=== PATIENT | male | born 1995 | race Caucasian/White ===

== ENCOUNTER 2019-09-29 17:12 | Emergency (ER) | payer OTHER, SELFPAY ==
[2019-09-29 17:25] VITALS: BP 146/79; PULSE 85; RESP 16; TEMP 36.4; O2SAT 97
--- NOTE | 2019-09-29 18:02 | NUR.NOTE ---
Nursing Note: Report and dog information faxed to [facility] Clerk. Health Officer Carson Jc notified and has a copy of the same information faxed to floor clerk. Angelia Martino. [facility] Clerk [phone]
[2019-09-29] MEDS: Amoxicillin 875/Clav. 125 TAB PO (18:38)
--- NOTE | 2019-09-29 18:39 | NUR.NOTE ---
Nursing Note: Wound cleaned and dressed prior to DC.
--- NOTE | 2019-09-30 00:02 | ED.GENADUL_ITS ---
Discharge Plan Disposition Patient Disposition: HOME Condition: Stable Discharge Details Chief Complaint: AnimalBite Clinical Impression: Dog bite Primary Care Provider: Lyle Choudhury ED Provider: Simran Holland Home Meds and New Rx's Prescriptions: New amoxicillin-pot clavulanate [Augmentin] 875-125 mg tablet 1 tab PO BID Qty: 20 RF: 0 No Action magnesium 200 mg tablet 200 mg PO DAILY PRNRF: 0 Discharge Instructions Instructions: Animal Bite (ED) Additional Instructions: Wash area with soap and water once or twice daily. Pat dry completely after washing or air dry. Apply topical antibiotic ointment to the wound and cover for at least 1 week. Suture removal from the left leg in 10 days. Please return to the emergency room for suture removal. For any sign of infection have immediate reevaluation in the emergency room. Antibiotic as prescribed every 12 hours. Recheck with primary care doctor this week. Return for any worsening, concerns or alarming symptoms sooner if needed Stand Alone Forms: Work Release Discharge Data Discharge Date/Time-TO BE ENTERED AT DEPARTURE: 09/29/19 19:00 HPI General Date/Time Provider Initiated Documentation: 09/29/19 17:27 . 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 This was unprovoked. Patient presents with wounds to bilateral thighs. Patient presents with paperwork from the occupational hygienist of the dog revealing up-to-date rabies vaccines. Patient reports his tetanus vaccine is up-to-date. Patient reports he is currently had a prescription for Augmentin for sinus infection which she was intermittently compliant with and has not completed. Patient has wounds noted to the right thigh with ecchymosis with no deep extension. Left thigh reveals again wounds and ecchymosis however there is 1 larger wound approximately 1.5 cm extending into the subcutaneous. Bleeding is controlled. Mild pain with range of motion of the legs but nothing to indicate deep injury. Left leg wound prepped extensively irrigated. A single 4-0 suture to close space. Patient provided with Augmentin prior to discharge and a 10-day pr escription. Wound management discussed. Suture removal discussed. Signs of infection discussed. The patient was stable and requested discharge. Prior to discharge, my usual and customary return precautions were reviewed with the patient - this included follow-up instructions and reasons to return to the Emergency Department if conditions worsens, does not improve as expected, or other new concerns arise. Related Data Home Medications Medication Instructions Recorded Confirmed magnesium 200 mg tablet 200 mg PO DAILY PRN 09/12/19 09/29/19 amoxicillin-pot clavulanate 1 tab PO BID #20 tab 09/29/19 [Augmentin] Previous Rx's Medication Instructions Recorded amoxicillin-pot clavulanate 1 tab PO BID #20 tab 09/29/19 [Augmentin] Allergies Allergy/AdvReac Type Severity Reaction Status Date / Time No Known Allergies Allergy Unverified 09/29/19 17:29 General Stated Complaint: AnimalBite ROMULO: 4 PFSH Family History (Updated 07/18/19 @ 15:12 by Momo Anderson) Mother No problems noted. Father Diabetes Brother No problems noted. Maternal Grandfather , age 82 Hyperlipidemia Lung cancer Paternal Grandfather Heart disease Maternal Grandmother Diabetes Essential hypertension Hyperlipidemia Paternal Grandmother No problems noted. Social History (Updated 07/18/19 @ 15:11 by Momo Anderson) Smoking/Tobacco Use Status: Current-Occasional Tobacco Type: e-cigarettes and smokeless tobacco Smokeless tobacco user: chewing tobacco Quit status: considering quitting Alcohol Intake: current Alcohol Intake frequency: 0-2 drinks per day Alcohol type: beer Drug use: Occasionally Substance use type: marijuana Caregiver/Support person: No Household members: family Housing: house Communication Needs: None Do you need help understanding health information?: Never current occupation: [employer] Pets and animals: Yes Pets and animals: cat(s) Sexually active: No Do you think of yourself as: straight/heterosexual Current gender identity: male What is your relationship status?: never How often do you talk on the phone with friends or family?: three or more times per week How often do you get together with friends or relatives?: three or more times per week How often do you attend congregational or presybeterian services?: decline to answer Do you belong to any clubs or organized social groups?: no Panel score (0-1 are the most socially isolated patients): 1 What type of physical activity do you participate in: walking and other Details: work Duration: 60-90 minutes/day Frequency: 5-6 times per week Gala/Voodoo: No preference Special gala needs: No Seatbelt use: always 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 Do you feel safe in your relationship?: Yes Course Vital Signs Vital signs: Vital Signs Temperature 36.4 C L 09/29/19 17:25 Pulse 85 09/29/19 17:25 Respiratory Rate 16 09/29/19 17:25 Blood Pressure 146/79 H 09/29/19 17:25 Pulse Oximetry 97 09/29/19 17:25 Temperature 36.4 C L 09/29/19 17:25 Temperature Source Skin 09/29/19 17:25 Pulse 85 09/29/19 17:25 Respiratory Rate 16 09/29/19 17:25 Respiratory Effort Non-Labored 09/29/19 17:25 Blood Pressure 146/79 H 09/29/19 17:25 Blood Pressure Position Sitting 09/29/19 17:25 Pulse Oximetry 97 09/29/19 17:25 Oxygen Delivery Method Room Air 09/29/19 17:25 Oxygen Flow Rate 0 09/29/19 17:25 Pain Level 4 09/29/19 17:48
== END 2019-09-29 19:00 | disposition home or self-care (01) ==
PROVIDERS: Emergency Provider Physician Assistant; PCP Family Medicine
DX: S71.152A Open bite, left thigh, initial encounter (principal); S70.311A Abrasion, right thigh, initial encounter; W54.0XXA Bitten by dog, initial encounter; Y99.0 Civilian activity done for income or pay
CPT/HCPCS: 12001; 99283; 99281

== ENCOUNTER 2020-10-15 10:56 | Emergency (ER) | payer OTHER, SELFPAY ==
--- NOTE | 2020-10-15 11:00 | DI.RAD_ITS ---
EXAM: XR SHOULDER LT COMPLETE 2+V CLINICAL HISTORY: pain lateral shoulder, heavy lifting. TECHNIQUE: 2D digital imaging was performed. COMPARISON: No exams were available for comparison FINDINGS: BONES: No acute fracture is present. No bony destructive lesion is seen. JOINTS: No dislocation present. SOFT TISSUE: Normal. IMPRESSION: Unremarkable radiographs of the left shoulder. DATA REPOSITORY: RADIATION DOSE DELIVERED:
[2020-10-15 11:01] VITALS: BP 132/97; PULSE 74; RESP 16; TEMP 37.2; O2SAT 99
--- NOTE | 2020-10-15 11:48 | W.ED.GENAD ---
Discharge Plan Disposition Patient Disposition: HOME Condition: Good Discharge Details Clinical Impression: Left shoulder strain Primary Care Provider: Lyle Choudhury ED Provider: Libby Morales Home Meds and New Rx's Prescriptions: New diclofenac sodium [Voltaren] 1 % gel 4 g topical QID Qty: 150 RF: 0 No Action magnesium 200 mg tablet 200 mg PO DAILY PRNRF: 0 mupirocin 2 % ointment 1 applic topical TID Qty: 15 RF: 0 Discharge Instructions Instructions: Shoulder Sprain (ED) Additional Instructions: follow-up with pcp next week gel to shoulder as needed for pain motrin 600 mg every 8 hours tylenol 650 mg every 4-6 as needed for pain continue to range shoulder so it does not become stiff return earlier with new or worsening complaints blood pressure rechecked by pcp Stand Alone Forms: Work Release Discharge Data Discharge Date/Time-TO BE ENTERED AT DEPARTURE: 10/15/20 12:35 Medical Decision Making Suspect strain to the left shoulder given mechanism X-ray does not show acute pathology per my interpretation, pending radiology review Ibuprofen and Tylenol for pain control PCP follow-up recommended Return precautions discussed the patient expressed understanding Differential Diagnosis Differential Diagnosis: Fracture, strain, contusion, abrasion HPI 25-year-old male with left shoulder pain which began just prior to arrival. He was listening TO TRUCK WHEN HE FELT A POP IN HIS LEFT SHOULDER. HE DENIES ANY ADDITIONAL INJURIES. HE IS LEFT-HAND DOMINANT. HE DENIES any additional injury.. HE IS UNABLE TO EXTEND OR ABDUCT LEFT ARM SECONDARY TO DISCOMFORT. HE DENIES ANY NECK PAIN. General Date/Time Provider Initiated Documentation: 10/15/20 11:02. Related Data Home Medications Medication Instructions Recorded Confirmed magnesium 200 mg tablet 200 mg PO DAILY PRN 09/12/19 10/31/19 mupirocin 2 % topical ointment 1 applic TOPICAL TID #15 g 10/01/20 10/01/20 diclofenac sodium [Voltaren] 4 g TOPICAL QID #150 g 10/15/20 Previous Rx's Medication Instructions Recorded mupirocin 2 % topical ointment 1 applic TOPICAL TID #15 g 10/01/20 diclofenac sodium [Voltaren] 4 g TOPICAL QID #150 g 10/15/20 Allergies Allergy/AdvReac Type Severity Reaction Status Date / Time No Known Allergies Allergy Unverified 10/31/19 09:43 General Stated Complaint: Orthopedic ROMULO: 4 Review of Systems Narrative: Review of systems negative x3 aside from where indicated in HPI PFSH Family History Mother No problems noted. Father Diabetes Brother No problems noted. Maternal Grandfather , age 82 Hyperlipidemia Lung cancer Paternal Grandfather Heart disease Maternal Grandmother Diabetes Essential hypertension Hyperlipidemia Paternal Grandmother No problems noted. Social History (Updated 07/18/19 @ 15:11 by Momo Anderson) Smoking/Tobacco Use Status: Current-Occasional Tobacco Type: e-cigarettes and smokeless tobacco Smokeless tobacco user: chewing tobacco Quit status: considering quitting Smoking risk assessment performed?: Yes Alcohol Intake: current Alcohol Intake frequency: 0-2 drinks per day Alcohol type: beer Drug use: Occasionally Substance use type: marijuana Caregiver/Support person: No Household members: family Housing: house Communication Needs: None Do you need help understanding health information?: Never current occupation: [employer] Pets and animals: Yes Pets and animals: cat(s) Sexually active: No Do you think of yourself as: straight/heterosexual Current gender identity: male What is your relationship status?: never How often do you talk on the phone with friends or family?: three or more times per week How often do you get together with friends or relatives?: three or more times per week How often do you attend worship or rastafari services?: decline to answer Do you belong to any clubs or organized social groups?: no Panel score (0-1 are the most socially isolated patients): 1 What type of physical activity do you participate in: walking and other Details: work Duration: 60-90 minutes/day Frequency: 5-6 times per week Gala/Scientologist: No preference Special gala needs: No Seatbelt use: always Drive intox or ride w/intox limb driver: No Do you feel safe at home: Yes Do you feel safe in your relationship?: Yes Exam Const General: comfortable Neck Other: No midline tenderness Extrem Other: Pain with palpation of her left shoulder, decreased supination and abduction, sensation intact distally, distal pulses intact Course Vital Signs Vital signs: Vital Signs Temperature 37.2 C 10/15/20 11:01 Pulse 74 10/15/20 11:01 Respiratory Rate 16 10/15/20 11:01 Blood Pressure 132/97 H 10/15/20 11:01 Pulse Oximetry 99 10/15/20 11:01 Temperature 37.2 C 10/15/20 11:01 Temperature Source Skin 10/15/20 11:01 Pulse 74 10/15/20 11:01 Respiratory Rate 16 10/15/20 11:01 Respiratory Effort 10/15/20 11:07 Blood Pressure 132/97 H 10/15/20 11:01 Blood Pressure Position Sitting 10/15/20 11:01 Pulse Oximetry 99 10/15/20 11:01 Oxygen Delivery Method Room Air 10/15/20 11:01 Oxygen Flow Rate 0 10/15/20 11:01 Pain Level 5 10/15/20 11:01
[2020-10-15] MEDS: Ibuprofen 600 MG TAB PO (12:19)
== END 2020-10-15 12:35 | disposition home or self-care (01) ==
PROVIDERS: Emergency Provider Physician Assistant; PCP Family Medicine
DX: S46.812A Strain of other muscles, fascia and tendons at shoulder and upper arm level, left arm, initial encounter (principal); X50.9XXA Other and unspecified overexertion or strenuous movements or postures, initial encounter
CPT/HCPCS: 99283; 73030

== ENCOUNTER 2020-11-12 04:31 | Outpatient (CLI) | payer OTHER, SELFPAY ==
[2020-11-12 08:31] LABS: Hemoglobin A1C 5.5 % (<5.7)
[2020-11-12 09:21] LABS: Calculated LDL 149 mg/dL (<100); Cholesterol 224 mg/dL (<200); HDL Cholesterol 54 mg/dL (40-60); Triglyceride 105 mg/dL (<150)
== END 2020-11-12 04:32 | disposition home or self-care (01) ==
PROVIDERS: PCP Family Medicine; Visit Provider Nurse Practitioner Family
DX: Z13.220 Encounter for screening for lipoid disorders (principal); Z13.1 Encounter for screening for diabetes mellitus
CPT/HCPCS: 36415; 80061; 83036

== ENCOUNTER 2021-02-15 11:28 | Outpatient (REF) | payer OTHER, SELFPAY ==
[2021-02-20 14:26] LABS: Chlamydia Result Negative (Negative); GC Result Negative (Negative)
== END 2021-02-16 11:29 | disposition home or self-care (01) ==
LOC: NCHCN 11:28
PROVIDERS: PCP Nurse Practitioner Family; Visit Provider Nurse Practitioner Family
DX: Z20.2 Contact with and (suspected) exposure to infections with a predominantly sexual mode of transmission
CPT/HCPCS: 87491; 87591

== ENCOUNTER 2021-08-01 19:10 | Outpatient (REF) | payer OTHER, SELFPAY ==
[2021-08-03 15:52] LABS: COVID-19 RT-PCR UVMMC Result Negative (Negative)
== END 2021-08-01 19:11 | disposition home or self-care (01) ==
LOC: LBN 19:10
PROVIDERS: PCP Nurse Practitioner Family; Visit Provider Nurse Practitioner Family
DX: Z20.822 Contact with and (suspected) exposure to COVID-19 (principal)
CPT/HCPCS: U0003

== ENCOUNTER 2021-10-29 22:44 | Emergency (ER) | payer OTHER, SELFPAY ==
[2021-10-29 22:49] VITALS: BP 144/90; PULSE 82; RESP 16; TEMP 36.8; O2SAT 99
--- NOTE | 2021-10-29 23:05 | ED.GENADUL_ITS ---
Discharge Plan Disposition Patient Disposition: HOME Condition: Good Discharge Details Clinical Impression: Acute anterior epistaxis Primary Care Provider: Benjamin Mahmood ED Provider: Miles Villeda Home Meds and New Rx's Prescriptions: Continued magnesium 200 mg tablet 200 mg PO DAILY PRN0RF nicotine (polacrilex) [Nicorette] 2 mg gum 2 mg buccal Q1H Qty: 50 8RF magnesium hydroxide [Dulcolax (magnesium hydroxide)] 400 mg/5 mL suspension 5 ml PO DAILY PRN (Reason: stomach upset) Qty: 500 0RF Discharge Instructions Additional Instructions: Please use bacitracin twice daily and you may also use nasal saline to help with nasal moisture. Please avoid any trauma including even mild wiping to the nose, insertion of fingers into the nose, or blowing hard. Feel free to return to the emergency department for any new or significant worsening of symptoms as discussed and follow-up with primary care provider if symptoms persist but do not worsen. Referrals: Benjamin Mahmood, [facility] [Primary Care Provider] - (As needed for reassessment or if not improving) Discharge Data Discharge Date/Time-TO BE ENTERED AT DEPARTURE: 10/29/21 23:16 Medical Decision Making Patient presenting to the emergency department for epistaxis. Symptoms have fully resolved. Physical exam shows visible vessels but no active bleeding. Exam otherwise unremarkable. Conservative management I feel is appropriate at this time given patient does have significant history of epistaxis all the way through childhood. Discussed with patient managing symptoms along with things he can do to prevent further nosebleeds. At this time I do not feel that patient needs any acute interventions given that nosebleed has stopped but did discuss with patient return and follow-up precautions. After discussion of diagnosis and plan of care patient has no further needs, questions, or concerns and states clear understanding to return to the emergency department for any worsening symptoms. HPI General Mode of arrival: ambulatory . Date/Time Provider Initiated Documentation: 10/29/21 22:54 . Limitations to Documentation: no limitations . Information obtained by: patient . History of Present Illness 26 year old M presents to the emergency department with the chief complaint of Epistaxis- left side , described as similar to prior episodes, Quality is described as other (Denies pain discomfort), Patient started experiencing this day(s) (3) and it has been intermittent. improves with other things that improve symptom(s), (pressure) No exacerbating factors reported . Patient notes no other sympto ms.. Patient did receive the following treatments prior to arrival, none Related Data Home Medications Medication Instructions Recorded Confirmed magnesium 200 mg tablet 200 mg PO DAILY PRN 09/12/19 10/29/21 nicotine (polacrilex) 2 mg gum 2 mg BUCCAL Q1H #50 ea 11/14/20 08/01/21 (Nicorette) magnesium hydroxide 400 mg/5 mL 5 ml PO DAILY PRN #500 ml 01/04/21 10/29/21 oral suspension (Dulcolax (magnesium hydroxide)) Previous Rx's Medication Instructions Recorded nicotine (polacrilex) 2 mg gum 2 mg BUCCAL Q1H #50 ea 11/14/20 (Nicorette) magnesium hydroxide 400 mg/5 mL 5 ml PO DAILY PRN #500 ml 01/04/21 oral suspension (Dulcolax (magnesium hydroxide)) Allergies Allergy/AdvReac Type Severity Reaction Status Date / Time No Known Allergies Allergy Verified 10/29/21 22:52 General Stated Complaint: Epistaxis ROMULO: 5 Review of Systems Constitutional Constitutional: Denies chills, Denies fever(s), Denies headache(s) and Denies malaise ENT Ears, Nose, Mouth, and Throat: Reports as per HPI, Denies headache(s), Reports epistaxis, Denies nose pain and Denies sore throat Cardiovascular Cardiovascular: Denies chest pain and Denies syncope Gastrointestinal Gastrointestinal: Denies abdominal pain and Denies melena Integumentary/Breasts Skin/Breast: Denies unusual bruising Neurologic Neurologic: Denies syncope and Denies headache(s) Hematologic/Lymphatic Hematologic/Lymphatic: Denies easy bleeding and Denies easy bruising PFSH All Active Problems Acute anterior epistaxis (Acute) COVID (Acute) GERD (gastroesophageal reflux disease) (Chronic) Smoking (Acute) Tinnitus (Acute) History of appendectomy (Chronic) Obesity (BMI 30.0-34.9) (Acute) Left shoulder strain (Acute) Dog bite (Acute) Family history of diabetes mellitus in father (Chronic) Family history of coronary artery disease in grandfather (Chronic) Family History Mother No problems noted. Father Diabetes Brother No problems noted. Maternal Grandfather , age 82 Hyperlipidemia Lung cancer Paternal Grandfather Heart disease Maternal Grandmother Diabetes Essential hypertension Hyperlipidemia Paternal Grandmother No problems noted. Social History Smoking/Tobacco Use Status: Current-Occasional Tobacco Type: e-cigarettes and smokeless tobacco Smokeless tobacco user: chewing tobacco (occ) Quit status: considering quitting Smoking risk assessment performed?: Yes Alcohol Intake: current Alcohol Intake frequency: holidays/special occasions only Alcohol type: beer Drug use: Daily Substance use type: marijuana Caregiver/Support person: No Household members: family Housing: house Communication Needs: None Do you need help understanding health information?: Never current occupation: [employer] Pets and animals: Yes Pets and animals: cat(s) Sexually active: No Do you think of yourself as: straight/heterosexual Current gender identity: male What is your relationship status?: never How often do you talk on the phone with friends or family?: three or more times per week How often do you get together with friends or relatives?: three or more times per week How often do you attend presybeterian or restorationist services?: decline to answer Do you belong to any clubs or organized social groups?: no Panel score (0-1 are the most socially isolated patients): 1 What type of physical activity do you participate in: walking and other Details: work Duration: 60-90 minutes/day Frequency: 5-6 times per week Gala/Worship: No preference Special gala needs: No Seatbelt use: always Drive intox or ride w/intox 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 Do you feel safe at home: Yes Do you feel safe in your relationship?: Yes Exam Const General: cooperative, comfortable and no acute distress Orientation: alert and awake [facility] Head: normal to inspection, normocephalic and atraumatic Ears: hearing grossly normal bilaterally General nose exam: external nose normal, nares normal, no nasal polyps, septum normal, no nasal discharge and no epistaxis Face and sinus: no erythema Mouth: oral mucosae normal Throat: posterior oropharynx normal Resp Effort & Inspection: normal respiratory effort and able to speak in complete sentences Skin General skin exam: no rashes or lesions noted Neuro General: patient alert, patient awake, patient oriented x3, gait normal and moves all extremities Cognition: normal cognition Speech: speech normal Course Vital Signs Vital signs: Vital Signs Temperature 36.8 C 10/29/21 22:49 Pulse 82 10/29/21 22:49 Respiratory Rate 16 10/29/21 22:49 Blood Pressure 144/90 H 10/29/21 22:49 Pulse Oximetry 99 10/29/21 22:49 Temperature 36.8 C 10/29/21 22:49 Pulse 82 10/29/21 22:49 Respiratory Rate 16 10/29/21 22:49 Respiratory Effort Non-Labored 10/29/21 22:53 Blood Pressure 144/90 H 10/29/21 22:49 Pulse Oximetry 99 10/29/21 22:49 Pain Level 0 10/29/21 22:49
== END 2021-10-29 23:16 | disposition home or self-care (01) ==
PROVIDERS: Emergency Provider Nurse Practitioner Family; PCP Nurse Practitioner Family
DX: R04.0 Epistaxis (principal)
CPT/HCPCS: 99281

== ENCOUNTER 2022-04-01 16:49 | Outpatient (REF) | payer OTHER, SELFPAY ==
[2022-04-01 20:44] LABS: Abs Immature Grans 0.03 10^3/uL (0.0-0.06); Absolute Basophil Count 0.06 10^3/uL (0.0-0.2); Absolute Eosinophil Count 0.03 10^3/uL (0.0-0.7); Absolute Lymphocyte Count 0.66 10^3/uL (1.2-3.4); Absolute Neutrophil Count 6.47 10^3/uL (1.2-6.7); Basophils % 0.7; Eosinophils % 0.4; HCT 52.4 % (40.0-50.0); HGB 18.4 g/dL (13.5-17.5); Immature Grans % 0.4; Lymphocytes % 8.2; MCH 30.7 pg (27.0-33.0); MCHC 35.1 % (32.0-36.0); MCV 87 fL (80-95); MPV 9.4 fL (8.0-11.0); Monocytes % 9.9; Neutrophils % 80.4; Platelet Count 199 10^3/uL (130-400); RDW 12.2 % (11.8-14.1); RDW-SD 39.1 fL; WBC 8.05 10^3/uL (4.4-10.8)
[2022-04-01 21:06] LABS: Bilirubin Small (Negative); Blood Negative (Negative); Clarity Clear (Clear); Glucose Negative (Negative); Ketones >=160 mg/dL (Negative); Leukocyte Esterase Negative (Negative); Nitrite Negative (Negative); Specific Gravity 1.025 (1.005-1.025)
[2022-04-01 21:09] LABS: ALT 27 U/L (16-63); AST 22 U/L (15-37); Albumin 4.3 g/dL (3.4-5.0); Alkaline Phosphatase 75 U/L (46-116); Anion Gap 12.7 mmol/L (3-11); BUN 11 mg/dL (7-18); CO2 25.3 mmol/L (21.0-32.0); CREATININE 1.1 mg/dL (0.70-1.30); Calcium 9.1 mg/dL (8.5-10.1); Chloride 103 mmol/L (98-107); Glucose 94 mg/dL (74-106); Potassium 3.6 mmol/L (3.5-5.1); Sodium 141 mmol/L (136-145); Total Protein 7.9 g/dL (6.4-8.2)
[2022-04-01 21:40] LABS: Bacteria Negative HPF (Negative); C & S Indicated? No; Casts Negative LPF (Negative); Crystals Few Calcium Oxalate HPF (Negative); Epithelial Cells Negative HPF (Negative); Mucus Negative (Negative); Other Cells Negative (Negative); RBC Negative HPF (0-2); WBC 0-2 HPF (0-5)
== END 2022-04-01 16:50 | disposition home or self-care (01) ==
LOC: LBN 16:49
PROVIDERS: PCP Nurse Practitioner Family; Visit Provider Nurse Practitioner Family
DX: R50.9 Fever, unspecified (principal); R39.89 Other symptoms and signs involving the genitourinary system; N39.0 Urinary tract infection, site not specified; R53.83 Other fatigue
CPT/HCPCS: 80053; 81003; 81015; 85025

== ENCOUNTER 2023-02-21 20:48 | Emergency (ER) | payer OTHER, SELFPAY ==
[2023-02-21 20:51] VITALS: BP 139/78; PULSE 72; RESP 16; TEMP 36.8; O2SAT 100
--- NOTE | 2023-02-21 21:21 | ED.GENADUL_ITS ---
Discharge Plan Disposition Patient Disposition: Home Condition: Stable Discharge Details Clinical Impression: Tick bite Primary Care Provider: Benjamin Mahmood ED Provider: Manuela Lopez Home Meds and New Rx's Prescriptions: No Action No Known Home Meds Discharge Instructions Instructions: Tick Bite (ED) Additional Instructions: You were given a one-time dose of doxycycline to treat for possible Lyme exposure. Please keep the area clean and dry. Be seen by PCP for any nausea vomiting, worsening redness or concerns. Follow up with primary care provider in 3-5 days. Return to ED sooner if any worsening or concerns. Increase oral fluids. Ibuprofen Referrals: Benjamin Mahmood, OPERATIONAL RISK ANALYST [Primary Care Provider] - 1 week Medical Decision Making 27-year-old male presents to the ER with chief complaint of tick bite to the posterior right leg. He noticed it yesterday. He reports that the tick was on there for 24 hours or less. He did remove it, he believes it was in there for less than 24 hours. Small red puncture wound noted no significant surrounding erythema or erythema migrans. He denies any other associated symptoms or concerns. We will give a one-time dose of 200 mg of doxycycline to treat empirically for possible Lyme. Discussed home care strict return instructions and follow-up care with PCP. Patient verbalized understanding. This text was generated using [employer] dictation system, please disregard any oddities of phrase or misspellings. HPI General Mode of arrival: ambulatory . Date/Time Provider Initiated Documentation: 02/21/23 21:11 . Limitations to Documentation: no limitations . Information obtained by: patient, RN notes reviewed and old records reviewed . HPI Narrative: 27-year-old male presents to the ER with chief complaint of tick bite to the posterior right leg. He noticed it yesterday. He reports that the tick was on there for 24 hours or less. He did remove it, he believes it was in there for less than 24 hours. Small red puncture wound noted no significant surrounding erythema or erythema migrans. He denies any other associated symptoms or concerns. Related Data Home Medications Medication Instructions Recorded Confirmed Unknown [No Known Home Meds] 01/07/23 02/19/23 Allergies Allergy/AdvReac Type Severity Reaction Status Date / Time No Known Allergies Allergy Verified 02/19/23 14:46 General Stated Complaint: InsectBite ROMULO: 5 Review of Systems All systems reviewed & are unremarkable except as noted in HPI and below PFSH All Active Problems (Updated 02/21/23 @ 21:26 by Manuela Lopez NP) Tick bite (Acute) Work related injury (Acute) Tinnitus (Acute) GERD (gastroesophageal reflux disease) (Chronic) Smoking (Acute) Vaping only Obesity (BMI 30.0-34.9) (Acute) Family history of diabetes mellitus in father (Chronic) Family history of coronary artery disease in grandfather (Chronic) Surgical History History of appendectomy Family History Mother No problems noted. Father Diabetes Brother No problems noted. Maternal Grandfather , age 82 Hyperlipidemia Lung cancer Paternal Grandfather Heart disease Maternal Grandmother Diabetes Essential hypertension Hyperlipidemia Paternal Grandmother No problems noted. Social History Smoking/Tobacco Use Status: Current every day Tobacco Type: e-cigarettes Tobacco: How many years used: 8 Quit status: not considering quitting Second Hand Exposure: Yes Smoking risk assessment performed?: Yes Alcohol Intake: former Drug use: Daily Substance use type: marijuana Caregiver/Support person: No Household members: family Housing: house Communication Needs: None Do you need help understanding health information?: Never current occupation: [employer] Pets and animals: Yes Pets and animals: cat(s) Sexually active: No Do you think of yourself as: straight/heterosexual Current gender identity: male What is your relationship status?: never How often do you talk on the phone with friends or family?: three or more times per week How often do you get together with friends or relatives?: three or more times per week How often do you attend muslim or temple services?: decline to answer Do you belong to any clubs or organized social groups?: no Panel score (0-1 are the most socially isolated patients): 1 What type of physical activity do you participate in: walking and other Details: work Duration: 60-90 minutes/day Frequency: 5-6 times per week Gala/Amish: No preference Special gala needs: No Seatbelt use: always Drive intox or ride w/intox 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 Do you feel safe at home: Yes Do you feel safe in your relationship?: Yes Exam Extrem Left lower extremity: hip/thigh (puncture wound, no surrounding erythema or erythema migrans no obvious FB) Course Vital Signs Vital signs: Vital Signs Temperature 36.8 C 02/21/23 20:51 Pulse 72 02/21/23 20:51 Respiratory Rate 16 02/21/23 20:51 Blood Pressure 139/78 02/21/23 20:51 Pulse Oximetry 100 02/21/23 20:51 Temperature 36.8 C 02/21/23 20:51 Temperature Source Oral 02/21/23 20:51 Pulse 72 02/21/23 20:51 Respiratory Rate 16 02/21/23 20:51 Respiratory Effort Normal, Non-Labored 02/21/23 20:53 Blood Pressure 139/78 02/21/23 20:51 Blood Pressure Position Sitting 02/21/23 20:51 Pulse Oximetry 100 02/21/23 20:51 Oxygen Delivery Method Room Air 02/21/23 20:51 Oxygen Flow Rate 0 02/21/23 20:51 Pain Level 0 02/21/23 20:51
[2023-02-21] MEDS: Doxycycline Hyclate 100 MG CAP 200 MG PO (21:31)
== END 2023-02-21 21:36 | disposition home or self-care (01) ==
PROVIDERS: Emergency Provider Registered Nurse Emergency; PCP Nurse Practitioner Family
DX: S80.261A Insect bite (nonvenomous), right knee, initial encounter (principal); W57.XXXA Bitten or stung by nonvenomous insect and other nonvenomous arthropods, initial encounter; Y93.89 Activity, other specified; Y92.89 Other specified places as the place of occurrence of the external cause; Y99.9 Unspecified external cause status; F17.290 Nicotine dependence, other tobacco product, uncomplicated
CPT/HCPCS: 99282

== ENCOUNTER 2023-10-31 09:42 | Emergency (ER) | payer OTHER, SELFPAY ==
[2023-10-31 09:50] VITALS: BP 138/93; PULSE 77; RESP 18; TEMP 36.6; O2SAT 96
--- NOTE | 2023-10-31 09:59 | ED.GENADUL_ITS ---
Discharge Plan Disposition Patient Disposition: Home Condition: Stable Discharge Details Clinical Impression: Left-sided epistaxis Primary Care Provider: Benjamin Mahmood ED Provider: Carson Samaniego Home Meds and New Rx's Prescriptions: Discontinued sertraline 50 mg tablet 50 mg PO DAILY Qty: 30 1RF Discharge Instructions Instructions: Nosebleed (ED) Additional Instructions: You can use the Afrin nasal spray but do not use it for more than 3 days. You can put 2 sprays 3 times a day If you have recurrent bleeding use the nasal clamp or your fingers to apply firm pressure over the cartilage portion of your nose not the bony part. Do this for 20 minutes and also make sure to lean her head forward. If bleeding does not stop after this return to the emergency department for reevaluation You should be contacted with an appointment with the supervisor gear repair if you do not hear from them you can call their office Referrals: Mandeep Avilez MD [ [facility] STAFF PHYSICIAN] - [facility] General Mode of arrival: ambulatory . Date/Time Provider Initiated Documentation: 10/31/23 09:43 . Limitations to Documentation: no limitations . Information obtained by: patient . History of Present Illness 28 year old M presents to the emergency department with the chief complaint of Left nosebleed, described as moderate, Patient started experiencing this hour(s) (1) and it has been now resolved. No relieving factors improve symptom(s), No exacerbating factors reported . Patient notes no other symptoms.. Patient did receive the following treatments prior to arrival, none Related Data Allergies Allergy/AdvReac Type Severity Reaction Status Date / Time No Known Allergies Allergy Verified 10/31/23 09:53 General Stated Complaint: Epistaxis ROMULO: 4 Review of Systems All systems reviewed & are unremarkable except as noted in HPI and below Constitutional Constitutional: Denies chills, Denies fever(s) and Denies weakness Cardiovascular Cardiovascular: Denies chest pain and Denies dyspnea Respiratory Respiratory: Denies cough and Denies dyspnea Gastrointestinal Gastrointestinal: Denies abdominal pain, Denies nausea and Denies vomiting Musculoskeletal Musculoskeletal: Denies joint swelling Integumentary/Breasts Skin/Breast: Denies rash Neurologic Neurologic: Denies weakness Exam Const General: no acute distress Orientation: alert HENMT Head: normal to inspection Ears: external ears normal General nose exam: no nasal polyps and septum normal Mouth: moist mucous membranes Eyes General: appearance normal, both eyes and all related structures Neck Neck: normal visual inspection Resp Effort & Inspection: normal respiratory effort and able to speak in complete sentences Cardio Rate: regular rate Skin General skin exam: no rashes or lesions noted Neuro General: patient alert and patient oriented x3 Extrem General: normal to inspection Psych Mental Status: mental status grossly normal Course Vital Signs Vital signs: Vital Signs Temperature 36.6 C 10/31/23 09:50 Pulse 77 10/31/23 09:50 Respiratory Rate 18 10/31/23 09:50 Blood Pressure 138/93 H 10/31/23 09:50 Pulse Oximetry 96 10/31/23 09:50 Temperature 36.6 C 10/31/23 09:50 Temperature Source Skin 10/31/23 09:50 Pulse 77 10/31/23 09:50 Respiratory Rate 18 10/31/23 09:50 Respiratory Effort Normal 10/31/23 09:52 Blood Pressure 138/93 H 10/31/23 09:50 Blood Pressure Position Sitting 10/31/23 09:50 Pulse Oximetry 96 10/31/23 09:50 Oxygen Delivery Method Room Air 10/31/23 09:50 Oxygen Flow Rate 0 10/31/23 09:50 Medical Decision Making 28-year-old male who denies any significant past medical history, states he does get occasional nosebleeds, comes in with left-sided nosebleed starting about an hour ago. Denies any recent illnesses, no fevers, no facial trauma. He placed a tampon in his left nose and came here. He is alert and oriented x 4 and appears well. I removed the tampon and he had very slow oozing blood out of the left nostril, no visible abnormalities otherwise. Afrin placed and nasal clamp placed, will reassess. Given the slow oozing doubt posterior epistaxis. Bleeding controlled with Afrin and nasal clamp, I do not see any areas that would benefit from cauterization right now. He states he has been to the ER several times within the last year or 2 for nosebleeds. Has never seen ENT so we will give a referral to see them soon as possible for follow-up. Return precautions given Differential Diagnosis Differential Diagnosis: Anterior nosebleed, posterior nosebleed Quality:SDOH Health Related Social Needs: No Data to Display PFSH All Active Problems (Updated 10/31/23 @ 10:23 by Carson Samaniego MD) Left-sided epistaxis (Acute) Anxiety (Chronic) Work related injury (Acute) Tinnitus (Acute) GERD (gastroesophageal reflux disease) (Chronic) Smoking (Acute) Vaping only Obesity (BMI 30.0-34.9) (Acute) Family history of diabetes mellitus in father (Chronic) Family history of coronary artery disease in grandfather (Chronic) Surgical History History of appendectomy Family History (Updated 05/18/23 @ 15:15 by Sue Bloom NP) Mother No problems noted. Father Diabetes Brother No problems noted. Maternal Grandfather Hyperlipidemia Lung cancer Paternal Grandfather Heart disease Maternal Grandmother Diabetes Essential hypertension Hyperlipidemia Paternal Grandmother No problems noted. Social History Smoking/Tobacco Use Status: Current every day Tobacco Type: e-cigarettes Tobacco: How many years used: 8 Quit status: not considering quitting Second Hand Exposure: Yes Smoking risk assessment performed?: Yes Alcohol Intake: former Drug use: Daily Substance use type: marijuana Caregiver/Support person: No Household members: family Housing: house Communication Needs: None Do you need help understanding health information?: Never current occupation: [employer] Pets and animals: Yes Pets and animals: cat(s) Sexually active: No Do you think of yourself as: straight/heterosexual Current gender identity: male What is your relationship status?: never How often do you talk on the phone with friends or family?: three or more times per week How often do you get together with friends or relatives?: three or more times per week How often do you attend quaker or scientology services?: decline to answer Do you belong to any clubs or organized social groups?: no Panel score (0-1 are the most socially isolated patients): 1 What type of physical activity do you participate in: walking and other Details: work Duration: 60-90 minutes/day Frequency: 5-6 times per week Gala/Christianity: No preference Special gala needs: No Seatbelt use: always Drive intox or ride w/intox tour driver: No Do you feel safe at home: Yes Do you feel safe in your relationship?: Yes
[2023-10-31] MEDS: Oxymetazolone 0.05% SPRAY 15 ML BTL (10:22)
--- NOTE | 2023-10-31 10:25 | NUR.NOTE ---
Referral scanned to email [email or web address] for recurrent nosebleeds, has had 3 to 4 recently. AGUSTIN. Nursing Note:
== END 2023-10-31 10:59 | disposition home or self-care (01) ==
LOC: ER 10:32
PROVIDERS: Emergency Provider Emergency Medicine; PCP Nurse Practitioner Family
DX: R04.0 Epistaxis (principal)
CPT/HCPCS: 30901